=== PATIENT | male | born 1965 ===

== ENCOUNTER 2020-10-28 08:00 | Outpatient (CLI) | payer OTHER | END 2020-10-28 08:05 | disposition home or self-care (01) | LOC: PPH VACUNA 08:00 | PROVIDERS: ATTEND Emergency Medicine Pediatric Emergency Medicine | DX: Z23 Encounter for immunization (principal) ==

== ENCOUNTER 2021-08-05 10:24 | Outpatient (CLI) | payer OTHER | END 2021-08-05 10:34 | disposition home or self-care (01) | LOC: PPH VACUNA 10:24 | PROVIDERS: ATTEND Emergency Medicine Pediatric Emergency Medicine | DX: Z23 Encounter for immunization (principal) ==

== ENCOUNTER 2022-01-21 09:33 | Outpatient (CLI) | payer OTHER | END 2022-01-21 09:43 | disposition home or self-care (01) | LOC: PPH VACUNA 09:33 | PROVIDERS: ATTEND Emergency Medicine Pediatric Emergency Medicine | DX: Z23 Encounter for immunization (principal) ==